=== PATIENT | female | born 1965 | race Caucasian/White ===

== ENCOUNTER 2021-03-09 12:50 | Emergency (ER) | payer OTHER ==
[~2021-03-09] VITALS: Ht 157.5 cm; Wt 73.0 kg
[2021-03-09] MEDS ORDERED: ACETAMINOPHEN WITH CODEINE 300/30MG TABLET PO ONE (13:45)
[2021-03-09] MEDS ORDERED: NAPR-1176 MT (14:11)
[2021-03-09 14:25] VITALS: BP 141/70
== END 2021-03-09 14:33 | disposition home or self-care (01) ==
LOC: ER 12:50
DX: M54.2 Cervicalgia (principal); M54.5 Low back pain; I10 Essential (primary) hypertension; E11.9 Type 2 diabetes mellitus without complications
CPT/HCPCS: 99283

== ENCOUNTER 2021-03-13 16:01 | Emergency (ER) | payer OTHER ==
[~2021-03-13] VITALS: Ht 154.9 cm; Wt 81.0 kg
[~2021-03-13 16:01] MED LIST: NAPR-1176 MT
[2021-03-13 16:04] VITALS: BP 165/76
== END 2021-03-13 18:58 | disposition left against medical advice (07) ==
LOC: ER 16:01
DX: Z53.21 Procedure and treatment not carried out due to patient leaving prior to being seen by health care provider (principal); R52 Pain, unspecified